=== PATIENT | male | born 1955 | race Caucasian/White ===

== ENCOUNTER 2019-12-13 07:43 | Outpatient (CLI) | payer OTHER, SELFPAY ==
--- NOTE | 2019-12-13 | ECHO_ITS ---
Patient Info Name: Dmitri Foreman Age: 64 years : 1955 Gender: Male Ht: 69 in Wt: 111 lbs BSA: 1.55 m2 HR: 64 bpm BP: 141 / 99 mmHg Technical Quality: Good Exam Date: 12/13/2019 8:15 AM Exam Location: [facility] Patient Status: Outpatient Admit Date: 12/13/2019 Staff Ordering Physician: PHYSICIAN NOT ON STAFF, NONSTAFF Injection Specialist: Caprice Michaels RDCS Attending Provider: PHYSICIAN NOT ON STAFF, NONSTAFF Exam Type: CA echo doppler color flow Study Info Indications I27.2 - Other secondary pulmonary hypertension Complete two-dimensional, color flow and Doppler transthoracic echocardiogram is performed. Summary 1. Complete two-dimensional, color flow and Doppler transthoracic echocardiogram is performed. 2. Normal LV size and wall thickness; borderline LV systolic function, EF 50-55%. Normal RV size and systolic function. Normal mitral valve structure, no significant MR. Normal aortic valve structure, no hemodynamically significant stenosis. Trace TR, RVSP 34 mmHg. Sinus rhythm. Left Ventricle Left ventricular chamber dimension is normal. Left ventricular systolic function is normal, estimated at 50-55%. There is no increased left ventricular wall thickness. Left ventricular septal wall motion is normal. The left ventricular diastolic function is normal. Right Ventricle Right ventricular chamber dimension is normal. Right ventricular systolic function is normal. Left Atria Left atrial chamber dimension is normal. Right Atria Right atrial chamber dimension is normal. Aortic Valve The aortic valve is trileaflet. There is no aortic valve sclerosis. There is no aortic valve stenosis. There is no aortic valve regurgitation. Pulmonic Valve The pulmonic valve is normal. There is mild pulmonic regurgitation. Mitral Valve The mitral valve has normal leaflets. There is no mitral valve regurgitation. Tricuspid Valve The tricuspid valve leaflets are normal. There is trace tricuspid valve regurgitation. No pulmonary hypertension, estimated pulmonary arterial systolic pressure is 34 mmHg. Pericardium/Pleural The pericardium appears normal. There is no pericardial effusion. Inferior Vena Cava Dilated inferior vena cava with >50% collapse upon inspiration consistent with normal right atrial pressure, 10 mmHg. Aorta The aortic root size at the sinus of Valsalva is normal. The prox ascending aorta size is normal. Left Ventricular Outflow Tract Name Value Normal LVOT 2D LVOT Diameter 2.1 cm LVOT Doppler LVOT Peak Gradient 3 mmHg LVOT Mean Gradient 1 mmHg LVOT VTI 18 cm LVOT VTI/AV VTI Ratio 0.9 LVOT Stroke Volume 63 ml LVOT CO 4.1 l/min LVOT CI 2.7 l/min/m2 Pulmonic Valve Name Value Normal
== END 2019-12-13 07:44 | disposition home or self-care (01) ==
DX: I27.20 Pulmonary hypertension, unspecified (principal)
CPT/HCPCS: 93306